=== PATIENT | male | born 1950 | race Caucasian/White ===

== ENCOUNTER → 2020-01-07 | Outpatient (CLI) | payer MEDICARE, OTHER ==
--- NOTE | 2020-01-07 11:09 | Diagnostic Imaging Report ---
EXAMINATION: Abdominal series and chest radiograph HISTORY: Constipation. COMPARISON: None available. FINDINGS: Bowel gas pattern is normal. Large amount of stool is present. No free air is seen. The lungs are clear. No edema. No pneumonia. No pleural effusion. No pneumothorax. Heart is normal in size. IMPRESSION: 1. Clear lungs. 2. Large amount of stool without free air. Dictated by: Dictated on workstation # [id number]
== END ==
LOC: RAD 10:38
PROVIDERS: ATTEND Emergency Medicine
DX: K59.00 Constipation, unspecified (principal)
CPT/HCPCS: 74022

== ENCOUNTER → 2021-01-10 | Outpatient (CLI) | payer MEDICARE, OTHER ==
[2021-01-10 09:09] LABS: BILIRUBIN,URINE NEGATIVE (NEGATIVE); CLARITY,URINE CLEAR; COLOR,URINE YELLOW; GLUCOSE, URINE (UA) NEGATIVE (NEGATIVE); KETONES,URINE TRACE (NEGATIVE); LEUKOCYTE ESTERASE ,URINE NEGATIVE (NEGATIVE); NITRITE,URINE NEGATIVE (NEGATIVE); PH,URINE 6.5 (5-9); PROTEIN,URINE NEGATIVE (NEGATIVE)
[2021-01-10 09:25] LABS: BACTERIA,URINE NEGATIVE /HPF; SQUAMOUS EPITHELIAL CELL,UR RARE /HPF; WBC,URINE RARE /HPF
[2021-01-10 09:26] LABS: HEMOGLOBIN 13.4 G/DL (13.3-17.7); MEAN CORPUSCULAR HEMOGLOBIN 31 PG (25-34); WHITE BLOOD COUNT 3.3 10^3/uL (4.3-11.0)
[2021-01-10 09:27] LABS: HEMATOCRIT 39 % (40-54); MEAN CORPUSCULAR VOLUME 91 FL (80-99)
[2021-01-10 09:28] LABS: LYMPHOCYTES % (AUTO) 26 % (12-44); MEAN CORPUSCULAR HGB CONC 34 G/DL (32-36); MEAN PLATELET VOLUME 9.2 FL (7.4-10.4); NEUTROPHILS % (AUTO) 58 % (42-75); PLATELET COUNT 178 10^3/uL (130-400)
[2021-01-10 09:30] LABS: MONOCYTES % (AUTO) 10 % (0-12)
[2021-01-10 09:31] LABS: BASOPHILS % (AUTO) 1 % (0-10); EOSINOPHILS # (AUTO) 0.2 10^3/uL (0.0-0.3); EOSINOPHILS % (AUTO) 5 % (0-10); LYMPHOCYTES # (AUTO) 0.9 X 10^3 (1.0-4.0); MONOCYTES # (AUTO) 0.3 X 10^3 (0.0-1.0); NEUTROPHILS # (AUTO) 1.9 X 10^3 (1.8-7.8)
[2021-01-10 09:51] LABS: ALBUMIN 3.9 GM/DL (3.2-4.5); CALCIUM 8.8 MG/DL (8.5-10.1); CREATININE SERUM 0.97 MG/DL (0.60-1.30); POTASSIUM 4.4 MMOL/L (3.6-5.0); TOTAL PROTEIN 6.3 GM/DL (6.4-8.2)
== END ==
LOC: LAB FS 07:59
PROVIDERS: ATTEND Internal Medicine
DX: Z12.5 Encounter for screening for malignant neoplasm of prostate (principal); E10.3293 Type 1 diabetes mellitus with mild nonproliferative diabetic retinopathy without macular edema, bilateral; I10 Essential (primary) hypertension; E78.49 Other hyperlipidemia; D50.8 Other iron deficiency anemias; E53.8 Deficiency of other specified B group vitamins; E55.9 Vitamin D deficiency, unspecified
CPT/HCPCS: 36415; 80053; 80061; 81000; 82043; 82306; 82607; 83036; 83540; 84153; 84443; 84466; 85025

== ENCOUNTER → 2021-04-23 | Outpatient (CLI) | payer MEDICARE, OTHER | LOC: CARD 10:30 | PROVIDERS: ATTEND Nurse Practitioner | DX: I08.0 Rheumatic disorders of both mitral and aortic valves (principal) | CPT/HCPCS: 93306 ==

== ENCOUNTER → 2021-11-08 | Outpatient (CLI) | payer MEDICARE, OTHER ==
--- NOTE | 2021-11-08 14:16 | Diagnostic Imaging Report ---
INDICATION: ACUTE COUGH, SOB COMPARISON: 01/07/2020 FINDINGS: Frontal and lateral views of the chest demonstrate normal heart size and pulmonary vascularity. The lungs are clear. There are no signs of infiltrate, pleural effusions or pneumothoraces. The visualized osseous structures show no acute abnormalities. IMPRESSION: 1. No acute process. No signs of infiltrates, effusions or pneumothoraces. Dictated by: Dictated on workstation # [id number]
== END ==
LOC: RAD FS 13:46
PROVIDERS: ATTEND Nurse Practitioner Family
DX: R05.1 Acute cough (principal); R06.02 Shortness of breath
CPT/HCPCS: 71046

== ENCOUNTER 2021-11-30 12:16 | Emergency (ER) | payer MEDICARE, OTHER ==
[~2021-11-30] VITALS: Ht 180.3 cm; Wt 106.1 kg
--- NOTE | 2021-11-30 12:26 | ED Respiratory ---
General Stated Complaint: COVID+; SOB Source: patient Exam Limitations: no limitations History of Present Illness Date Seen by Provider: Nov 30, 2021 Time Seen by Provider: 12:18 Initial Comments 71yoM with PMH of DM, HTN, and asthma that is day 5 of being COVID positive coming in due to SOB. Started having symptoms on Thursday and tested positive on Thursday. Started Paxlovid that day. Temp was up to 102F and no fever for 2 days. Having productive mucous with cough without blood. He has had Moderna vaccine x2. Does not smoke. Allergies and Home Medications Allergies Coded Allergies: No Known Drug Allergies (Unverified , 11/30/21) Patient Home Medication List Home Medication List Reviewed: Yes Doxycycline Hyclate (Doxycycline Hyclate) 100 Mg Tablet, 100 MG PO BID Prescribed by: LAKHWINDER MATHEWS on 11/30/21 1252 Review of Systems Review of Systems Constitutional: No fever EENTM: No blurred vision Respiratory: cough, short of breath Cardiovascular: No chest pain Gastrointestinal: No abdominal pain, No nausea, No vomiting Genitourinary: no symptoms reported Musculoskeletal: no symptoms reported Skin: no symptoms reported Psychiatric/Neurological: No Symptoms Reported Hematologic/Lymphatic: No Symptoms Reported Immunological/Allergic: no symptoms reported All Other Systems Reviewed Negative Unless Noted: Yes Past Edpitnm-Ubcmnu-Iolgyi Hx Patient Social History Tobacco Use?: No Substance use?: No Past Medical History Surgeries: Yes (orthopedic) Physical Exam Vital Signs - First Documented 11/30/21 12:25 Temp 36.4 Pulse 71 Resp 14 B/P (MAP) 172/68 (102) Pulse Ox 99 O2 Delivery Room Air Capillary Refill : Height: '" Weight: lbs. oz. kg; BMI Method: General Appearance: WD/WN, no apparent distress Eyes: Bilateral Eye Normal Inspection HEENT: PERRL/EOMI, normal ENT inspection, pharynx normal Neck: non-tender, full range of motion, supple, normal inspection Respiratory: chest non-tender, lungs clear, normal breath sounds, no respiratory distress, no accessory muscle use Cardiovascular: regular rate, rhythm, no edema, no murmur Gastrointestinal: normal bowel sounds, non tender, soft; No distended, No guarding, No rebound Extremities: normal range of motion, non-tender, normal inspection, no pedal edema, no calf tenderness, normal capillary refill Neurologic/Psychiatric: no motor/sensory deficits, alert, normal mood/affect Skin: normal color, warm/dry Lymphatic: no adenopathy Progress/Results/Core Measures Suspected Sepsis SIRS Temperature: Pulse: Respiratory Rate: Laboratory Tests 11/30/21 12:32: White Blood Count 7.9 Blood Pressure / Mean: Laboratory Tests 11/30/21 12:32: Creatinine 0.87, Platelet Count 157 Results/Orders Lab Results Laboratory Tests Test 11/30/21 12:32 Range/Units White Blood Count 7.9 4.3-11.0 10^3/uL Red Blood Count 3.90 L 4.30-5.52 10^6/uL Hemoglobin 12.0 L 13.3-17.7 g/dL Hematocrit 35 L 40-54 % Mean Corpuscular Volume 89 80-99 fL Mean Corpuscular Hemoglobin 31 25-34 pg Mean Corpuscular Hemoglobin Concent 35 32-36 g/dL Red Cell Distribution Width 12.4 10.0-14.5 % Platelet Count 157 130-400 10^3/uL Mean Platelet Volume 8.9 L 9.0-12.2 fL Immature Granulocyte % (Auto) 0 % Neutrophils (%) (Auto) 79 H 42-75 % Lymphocytes (%) (Auto) 10 L 12-44 % Monocytes (%) (Auto) 7 0-12 % Eosinophils (%) (Auto) 4 0-10 % Basophils (%) (Auto) 0 0-10 % Neutrophils # (Auto) 6.2 1.8-7.8 10^3/uL Lymphocytes # (Auto) 0.8 L 1.0-4.0 10^3/uL Monocytes # (Auto) 0.6 0.0-1.0 10^3/uL Eosinophils # (Auto) 0.3 0.0-0.3 10^3/uL Basophils # (Auto) 0.0 0.0-0.1 10^3/uL Immature Granulocyte # (Auto) 0.0 0.0-0.1 10^3/uL Sodium Level 132 L 135-145 MMOL/L Potassium Level 4.6 3.6-5.0 MMOL/L Chloride Level 96 L 98-107 MMOL/L Carbon Dioxide Level 26 21-32 MMOL/L Anion Gap 10 5-14 MMOL/L Blood Urea Nitrogen 11 7-18 MG/DL Creatinine 0.87 0.60-1.30 MG/DL Estimat Glomerular Filtration Rate 93 BUN/Creatinine Ratio 13 Glucose Level 97 70-105 MG/DL Calcium Level 8.8 8.5-10.1 MG/DL My Orders Orders - LAKHWINDER MATHEWS MD Basic Metabolic Panel (11/30/21 12:32) Cbc With Automated Diff (11/30/21 12:32) Chest 1 View Ap/Pa Only (11/30/21 12:32) Covid-19 External Lab Results (11/30/21 12:47) Isolation Central Supply Req (11/30/21 12:47) Vital Signs/I&O 11/30/21 12:25 Temp 36.4 Pulse 71 Resp 14 B/P (MAP) 172/68 (102) Pulse Ox 99 O2 Delivery Room Air Capillary Refill : Progress Note : Progress Note 71-year-old male with above history coming in due to having increasing productive cough with green sputum over the past couple days, being COVID positive for roughly 5 days, history of asthma. ABCs were intact and vitals were stable on presentation. Physical exam reassuring including clear lung muro and he has no signs of respiratory distress. I personally ambulated the patient and his oxygen maintained around 98 to 99% on room air. Chest x-ray on my interpretation with no obvious lobar pneumonia. Blood blood cell count normal, creatinine normal, electrolytes essentially unremarkable. The patient is low risk for a PE, is not tachycardic, not hypoxic, and I have a very low suspicion for PE at this time as a cause of his shortness of breath. Given his history of asthma with increasing productive sputum, we will start him on a course of doxycycline. I believe he is stable for discharge with outpatient follow-up. He was sent home with strict return precautions Diagnostic Imaging Diagonstic Imaging: Xray Plain Films/CT/US/NM/MRI: chest Comments NAME: GIA RIGGS [facility] REC#: [id number] PT STATUS: REG ER : 1950 PHYSICIAN: LAKHWINDER MATHEWS MD ADMIT DATE: 11/30/21/ER FS Draft Date of Exam:11/30/21 CHEST 1 VIEW AP/PA ONLY Indication: Dyspnea with productive cough, COVID pneumonia. Comparison: 11/08/2021. Discussion: Single portable upright view of the chest was obtained. Normal heart size. No focal consolidation, pleural fluid, or pneumothorax. No osseous abnormality. Impression: 1. Negative portable chest. Dictated on workstation # [id number] Dict: 11/30/21 1247 Trans: 11/30/21 1249 CV [id number] Interpreted by: WAQAS PURDY MD Electronically signed by: Departure Impression Primary Impression: COVID-19 Disposition: 01 HOME, SELF-CARE Condition: Stable Departure-Patient Inst. Decision time for Depature: 12:56 Referrals: BAL ECKERT DO (PCP) Primary Care Physician Patient Instructions: COVID-19 (DC) Add. Discharge Instructions: I would finish off your Paxlovid tomorrow. We will start you on an antibiotic for potential bacterial infection as well. Use your inhaler as needed. Follow- up with your regular doctor early next week if things are not improving. Scripts Doxycycline Hyclate (Doxycycline Hyclate) 100 Mg Tablet 100 MG PO BID for 5 Days, #10 TAB 0 Refills Prov: LAKHWINDER MATHEWS MD 11/30/21 Work/School Note: Work Release Form Date Seen in the Emergency Department: Nov 30, 2021 Return to Work: Dec 02, 2021 Restrictions: No Restrictions LAKHWINDER MATHEWS MD Nov 30, 2021 12:26
[2021-11-30 12:38] LABS: BASOPHILS % (AUTO) 0 % (0-10); EOSINOPHILS # (AUTO) 0.3 10^3/uL (0.0-0.3); EOSINOPHILS % (AUTO) 4 % (0-10); HEMATOCRIT 35 % (40-54); LYMPHOCYTES # (AUTO) 0.8 10^3/uL (1.0-4.0); LYMPHOCYTES % (AUTO) 10 % (12-44); MEAN CORPUSCULAR HEMOGLOBIN 31 pg (25-34); MEAN CORPUSCULAR HGB CONC 35 g/dL (32-36); MEAN CORPUSCULAR VOLUME 89 fL (80-99); MEAN PLATELET VOLUME 8.9 fL (9.0-12.2); MONOCYTES # (AUTO) 0.6 10^3/uL (0.0-1.0); MONOCYTES % (AUTO) 7 % (0-12); NEUTROPHILS # (AUTO) 6.2 10^3/uL (1.8-7.8); NEUTROPHILS % (AUTO) 79 % (42-75); PLATELET COUNT 157 10^3/uL (130-400); WHITE BLOOD COUNT 7.9 10^3/uL (4.3-11.0)
[2021-11-30 12:49] LABS: CALCIUM 8.8 MG/DL (8.5-10.1); POTASSIUM 4.6 MMOL/L (3.6-5.0)
--- NOTE | 2021-11-30 12:49 | Diagnostic Imaging Report ---
Indication: Dyspnea with productive cough, COVID pneumonia. Comparison: 11/08/2021. Discussion: Single portable upright view of the chest was obtained. Normal heart size. No focal consolidation, pleural fluid, or pneumothorax. No osseous abnormality. Impression: 1. Negative portable chest. Dictated by: Dictated on workstation # [id number]
[2021-11-30 12:51] LABS: CREATININE SERUM 0.87 MG/DL (0.60-1.30)
[2021-11-30] MEDS ORDERED: DOXY100T2 PO (12:52)
[2021-11-30] MEDS ORDERED: DOXYCYCLINE 100 MG (VIBRAMYCIN) TABLET PO STA (12:56)
[2021-11-30 13:00] VITALS: BP 136/68
== END 2021-11-30 13:01 | disposition home or self-care (01) ==
LOC: EDUNIT# 12:16 → ER FS 12:19
DX: U07.1 COVID-19 (principal); J45.901 Unspecified asthma with (acute) exacerbation; Z73.0 Burn-out
CPT/HCPCS: 36415; 71045; 80048; 85025